=== PATIENT | female | born 1950 | race Two or more races ===

== ENCOUNTER 2023-06-23 09:19 | Emergency (ER) | payer OTHER ==
[~2023-06-23] VITALS: Ht 154.9 cm; Wt 65.5 kg
[2023-06-23 10:49] LABS: Alanine Aminotransferase 36 U/L (7-40); Albumin 4.4 g/dL (3.2-4.8); Alkaline Phosphatase 66 U/L (46-116); Anion Gap 6.9 (5-15); Aspartate Aminotransferase 16 U/L (13-40); BUN/Creatinine Ratio 41.3 (10.0-20.0); Blood Urea Nitrogen 33 mg/dL (9-23); Calcium 9.5 mg/dL (8.5-10.1); Carbon Dioxide 24.1 mmol/L (20-30); Chloride 106 mmol/L (98-107); Glucose 90 mg/dL (74-106); Potassium 4.8 mmol/L (3.5-5.1); Sodium 137 mmol/L (136-145); Total Protein 6.5 g/dL (5.7-8.2)
[2023-06-23 11:00] LABS: Hematocrit 44.6 % (36.0-46.0); Hemoglobin 14.9 g/dL (12.2-16.2); Mean Corpuscular Hemoglobin 29.2 pg (28.0-32.0); Mean Corpuscular Hgb Conc. 33.4 g/dL (32.0-36.0); Mean Corpuscular Volume 87.5 fL (80.0-100.0); Red Cell Distribution Width 13.6 % (11.8-14.3)
[2023-06-23 11:03] LABS: Band Neutrophils % (manual) 0; Basophils % (manual) 0 (0.0-2.0); Blast Cells 0; Metamyelocytes % 0; Promyelocytes % 0; Reactive Lymphocytes 0
[2023-06-23 11:13] LABS: Bilirubin, Total 0.7 mg/dL (0.2-1.0)
[2023-06-23 11:25] LABS: Urine Bacteria FEW /hpf (None Seen); Urine Blood Negative /uL (Negative); Urine Clarity Clear (Clear); Urine Color Colorless (Yellow); Urine Protein, UAD Negative (Negative); Urine Specific Gravity 1.014 (1.001-1.035); Urine Urobilinogen Normal (Negative); Urine WBC 3 /hpf (0 - 5)
[2023-06-23] MEDS ORDERED: MECL1TAB42 PO (12:33)
[2023-06-23] MEDS ORDERED: NITR-87 PO (12:33)
[2023-06-23 12:56] VITALS: BP 115/86; PULSE 73; RESP 16; O2SAT 96
[2023-06-23 14:35] LABS: Eosinophils % (manual) 2 (0-7); Lymphocytes % (manual) 29 (10.0-50.0); Monocytes % (manual) 7 (0-12); Myelocytes % 4
[2023-06-23 14:36] LABS: Platelet Estimate Increased
== END 2023-06-23 13:00 | disposition home or self-care (01) ==
LOC: ER 09:19
DX: R55 Syncope and collapse (principal); N39.0 Urinary tract infection, site not specified; I10 Essential (primary) hypertension
CPT/HCPCS: 36415; 70450; 80053; 81001; 82962; 84484; 85007; 85027; 93005